=== PATIENT | male | born 1990 | race African-American/Black ===

== ENCOUNTER 2019-07-28 13:12 | Outpatient (CLI) | END 2019-07-28 13:32 | disposition short-term general hospital (02) | LOC: AMBL 13:12 | PROVIDERS: ATTEND Family Medicine | DX: S01.01XA Laceration without foreign body of scalp, initial encounter (principal); S00.31XA Abrasion of nose, initial encounter; R04.0 Epistaxis; V43.62XA Car passenger injured in collision with other type car in traffic accident, initial encounter ==